=== PATIENT | female | born 1990 | race Asian ===

== ENCOUNTER 2020-11-25 23:19 | Emergency (ER) | payer OTHER ==
[2020-11-25 23:34] VITALS: BP 126/78; PULSE 116; TEMP 98.3; BMI 25.3
[2020-11-26 00:33] LABS: BASO % 0.3 % (0-2.0); EOS % 0.7 % (0-4.5); HEMATOCRIT 36.7 % (32.4-45.2); HEMOGLOBIN 12.3 GM/dL (10.7-15.3); LYMPH % 9.7 % (8-40); MCH 30.8 pg (25.7-33.7); MCHC 33.6 g/dl (32.0-36.0); MEAN CELL VOLUME 91.5 fl (80-96); MEAN PLT VOLUME 8.3 fl (7.5-11.1); MONO % 4.5 % (3.8-10.2); NEUT % 84.8 % (42.8-82.8); PLATELET COUNT 255 K/MM3 (134-434); RBC 4.01 M/mm3 (3.60-5.2); RDW 13.6 % (11.6-15.6); WHITE BLOOD COUNT 18.1 K/mm3 (4.0-10.0)
[2020-11-26 00:47] LABS: CALCIUM 9.3 mg/dL (8.5-10.1)
[2020-11-26 00:48] LABS: BLOOD UREA NITROGEN 7.1 mg/dL (7-18)
[2020-11-26 00:51] LABS: CREATININE 0.5 mg/dL (0.55-1.3)
[2020-11-26 02:17] LABS: EPI CELLS 12 /uL (0-25.1); HYALINE CASTS 1 /uL (0-3.1); PH,URINE 5.5 (5.0-8.0); URINE APPEARANCE CLEAR; URINE BACTERIA 115 /uL (0-1359); URINE BILIRUBIN NEGATIVE (NEGATIVE); URINE COLOR YELLOW; URINE GLUCOSE (UA) NEGATIVE (NEGATIVE); URINE KETONE TRACE (NEGATIVE); URINE LEUK ESTERASE NEGATIVE (NEGATIVE); URINE NITRITE NEGATIVE (NEGATIVE); URINE PROTEIN NEGATIVE (NEGATIVE); URINE RBC 10 /uL (0-23.9); URINE UROBILINOGEN 0.2 mg/dL (0.2-1.0); URINE WBC 9 /uL (0-25.8)
[2020-11-26 04:21] LABS: HIV INTERPRETATION NEGATIVE (NEGATIVE)
== END 2020-11-26 02:30 | disposition home or self-care (01) ==
LOC: JER 23:19
DX: O03.9 Complete or unspecified spontaneous abortion without complication (principal)
CPT/HCPCS: 36415; 76801-TC; 80048; 80074; 81003; 84702; 85025; 86850; 86900; 86901; 87389; 88300-TC; 88307-TC; 99284-25